=== PATIENT | male | born 1945 | race Caucasian/White ===

== ENCOUNTER 2019-10-18 16:45 | Inpatient (IN) | payer MEDICARE ==
[~2019-10-18] VITALS: Ht 190.5 cm; Wt 62.2 kg
[2019-10-18] MEDS ORDERED: CEFEPIME 1GM/NS 0.9% 50 ML 50 ML IV STA (17:40)
[2019-10-18] MEDS ORDERED: VANCOMYCIN 1GM/NS 250 ML 250 ML IV STA (17:40)
[2019-10-18] MEDS ORDERED: ONDANSETRON HCL INJ 2MG/ML 2ML 2 MG/ML VIAL IV PRN ×2 (17:45→23:30)
[2019-10-18] MEDS ORDERED: MORPHINE SULFATE 2 MG/ML SYR 1ML IV PRN (17:45)
[2019-10-18] MEDS ORDERED: CEFEPIME 1GM/NS 0.9% 50 ML 50 ML IV SCH ×2 (18:00→23:30)
--- NOTE | 2019-10-18 18:06 | Emergency Department Note ---
History of Present Illnes History of Present Illness Chief Complaint: Skin Rash or Abscess History of Present Illness This is a 74 year old male arrives to the ED by Dr. Stewart for admission for diabetic foot ulcer. 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 Any updates have been documented here. Past Medical History Recent Fever: No Clinical Suspicion of Infectio: Yes New/Unexplained Change in Ment: No Past Medical History: None Other Surgery: amputation of tip of 2nd toe of right foot Social History Smoking Cessation: Current every day smoker Counseling Performed: Yes Alcohol Use: Occasional Any Illegal Drug Use: No Other Any Pre-Existing Lines (PICC,: No Review of Systems Review of Systems Constitutional: Reports no symptoms EENTM: Reports no symptoms Cardiovascular: Reports no symptoms Respiratory: Reports no symptoms Gastrointestinal: Reports no symptoms Genitourinary: Reports no symptoms Musculoskeletal: Reports no symptoms Integumentary: Reports as per HPI Neurological: Reports no symptoms Psychological: Reports no symptoms Endocrine: Reports no symptoms Hematological/Lymphatic: Reports no symptoms Review of other systems: All other systems negative Physical Exam Related Data Allergies: Coded Allergies: No Known Allergies (Unverified , 10/18/19) Triage Vital Signs Vital Signs Date Time Temp Pulse Resp B/P (MAP) Pulse Ox O2 Delivery O2 Flow Rate FiO2 10/18/19 17:04 98.9 100 20 94/73 99 Room Air Vital signs reviewed: Yes Physical Exam CONSTITUTIONAL Constitutional: Present well-developed, Present well-nourished HENT HENT: Present normocephalic, Present atraumatic, Present oropharynx clear/moist, Present nose normal HENT L/R: Present left ext ear normal, Present right ext ear normal EYES Eyes: Reports PERRL, Reports conjunctivae normal NECK Neck: Present ROM normal PULMONARY Pulmonary: Present effort normal, Present breath sounds normal CARDIOVASCULAR Cardiovascular: Present regular rhythm, Present heart sounds normal, Present capillary refill normal, Present normal rate GASTROINTESTINAL Abdominal: Present soft, Present nontender, Present bowel sounds normal GENITOURINARY Genitourinary: Present exam deferred SKIN Skin: Present warm, Present other (multiple wound ulcers noted in the right lower extremity and right heel) MUSCULOSKELETAL Musculoskeletal: Present ROM normal NEUROLOGICAL Neurological: Present alert, Present oriented x 3, Present no gross motor or sensory deficits PSYCHOLOGICAL Psychological: Present mood/affect normal, Present judgement normal Results Laboratory Lab results reviewed: Yes Imaging Imaging results reviewed: Yes Assessment & Plan Medical Decision Making MDM [age] male arrives to the ED with right lower extremity diabetic foot ulcer, require hospitalization for IV antibiotics Assessment & Plan Final Impression: (1) Diabetic foot ulcer Depart Disposition: ADMITTED Last Vital Signs Date Time Temp Pulse Resp B/P (MAP) Pulse Ox O2 Delivery O2 Flow Rate FiO2 10/18/19 17:04 98.9 100 20 94/73 99 Room Air Medications in the ED Cefepime HCl 50 ml @ 100 mls/hr Q24H STAT IV ; Start 10/18/19 at 17:40; Stop 10/18/19 at 18:09; Status UNV Vancomycin HCl 250 ml @ 200 mls/hr NOW STAT IV ; Start 10/18/19 at 17:40; Stop 10/18/19 at 18:54 Cefepime HCl 50 ml @ 100 mls/hr Q24H IV ; Start 10/18/19 at 18:00; Stop 10/25/19 at 17:59 Ondansetron HCl 4 mg Q4H PRN IV NAUSEA AND VOMITING; Start 10/18/19 at 17:45; Stop 11/17/19 at 17:44 Morphine Sulfate 4 mg Q4H PRN IV SEVERE PAIN (7-10); Start 10/18/19 at 17:45; Stop 10/25/19 at 17:44 Vancomycin HCl 250 ml @ 200 mls/hr NOW IV ; Start 10/19/19 at 17:45; Stop 10/18/19 at 18:00; Status DC Vancomycin HCl 250 ml @ 200 mls/hr Q24H IV ; Start 10/19/19 at 18:00; Stop 10/26/19 at 17:59 CECI JOHNSON, Oct 18, 2019 18:06
[2019-10-18] MEDS ORDERED: SODIUM CHLORIDE 0.9% 1000ML 1,000 ML IV ONE (18:15)
--- NOTE | 2019-10-18 18:29 | Diagnostic Imaging Report ---
Two-view x-rays of the tibia and fibula. Three-view x-rays of the foot. HISTORY: Pain. Clinical suspicion Foster myelitis. COMPARISON: None available. FINDINGS: TIBIA/FIBULA: No acute fracture or dislocation. Atherosclerotic vascular calcifications. Otherwise no focal soft tissue abnormality. FOOT: No acute fracture or dislocation. There is slight subluxation and cortical irregularity at the second distal interphalangeal joint. Bipartite tibial sesamoid. Atherosclerotic vascular calcifications. IMPRESSION: 1. Slight subluxation and cortical irregularity at the second distal interphalangeal joint this constellation of findings may represent osteomyelitis in the proper clinical setting. However, an MRI with and without contrast may be considered for more definitive diagnosis. 2. No fracture or dislocation of the tibia/fibula. Signed by: Imani Webb MD on 10/18/2019 6:26 PM
[2019-10-18 18:37] LABS: BASOPHILS % 0.5 % (0.0-1.0); EOSINOPHILS # (AUTO) 0.1 (0.0-0.4); EOSINOPHILS % 0.9 % (0.0-6.0); HEMATOCRIT 37.4 % (38.2-49.6); HEMOGLOBIN 12.7 g/dL (14.0-18.0); LYMPHOCYTES # (AUTO) 1.1 (1.0-3.2); LYMPHOCYTES % 13.4 % (18.0-39.1); MEAN CORPUSCULAR HEMOGLOBIN 33.9 pg (28-32); MEAN CORPUSCULAR VOLUME 99.7 fL (81-99); MONOCYTES # (AUTO) 0.6 (0.2-0.8); MONOCYTES % 7.1 % (4.4-11.3); NEUTROPHILS # (AUTO) 6.4 (2.1-6.9); NEUTROPHILS % 77.7 % (38.7-80.0); PLATELET COUNT 296 x10e3/uL (140-360); RED BLOOD COUNT 3.75 x10e6/uL (4.3-5.7); RED CELL DISTRIBUTION WIDTH 12.8 % (11.7-14.4)
[2019-10-18 18:44] LABS: ALANINE AMINOTRANSFERASE 8 IU/L (0-55); ALBUMIN 3.3 g/dL (3.5-5.0); ALBUMIN/GLOBULIN RATIO 0.8 (0.8-2.0); ALKALINE PHOSPHATASE 91 IU/L (40-150); ANION GAP 14.6 mmol/L (8-16); BLOOD UREA NITROGEN 12 mg/dL (7-26); BUN/CREATININE RATIO 17 (6-25); CALCIUM 9.3 mg/dL (8.4-10.2); CARBON DIOXIDE 21 mmol/L (22-29); CHLORIDE 99 mmol/L (98-107); CREATINE KINASE 56 IU/L (30-200); CREATININE, SERUM 0.69 mg/dL (0.72-1.25); EST GLOMERULAR FILTRATION RATE > 60 ML/MIN (60-); GLUCOSE 94 mg/dL (74-118); POTASSIUM 4.6 mmol/L (3.5-5.1); SODIUM 130 mmol/L (136-145)
[2019-10-18 22:24] VITALS: BP 184/87
--- NOTE | 2019-10-18 22:24 | NUR ---
REPORT CALLED FROM ER FADY- 74 DORINDA OLD MALE ADMITTED FROM HOME FOR RIGHT DIABETIC FOOT ULCER.RESPIRATIONS ARE EVEN AND UNLABORED. PT HAS HX RADIATION AT [facility]. OLD TRACH SITE PRESENT. PT COVERS WHEN TALKS. TELE #[phone] ON.PT REPORTS WAS SEEING DR AN FOR RT FOOT. DR AN HAD ORDERED AMOXICILLIN 875 MG PO BID. PT VERBALIZED HE IS NOT DIABETIC AND DOES NOT TAKE ANY OTHER MEDS. MRI XRAY OF RT LEG PENDING. SL 22 G RT FA. LT AC 20 G PATENT WITH VANCOMYCIN IV ABT INFUSING VIA IV PUMP #1 DOSE. PT IS ALERT AND ORIENTED BUT POOR HISTORIAN- MEDICINES AND HISTORY. WOUND CONSULT ORDERED. SEE MEASUREMENTS FOR WOUNDS RT LEG.ORIENTED TO ROOM, PMC AND MS3. CALL LIGHT WITHIN RECH. BED LOCKED AND IN LOW POSITION. TO BE EMERGENCY CONTACT- [facility] [phone] , CELL [phone], [phone].BED ALARM ON. PT VOIDING PER URINAL.
[2019-10-18 23:00] VITALS: BP 184/87
[2019-10-18] MEDS ORDERED: AMOXICILLIN250 MG PO (23:21)
[2019-10-18] MEDS ORDERED: HYDROCODONE/APAP 5MG-325MG TAB PO PRN (23:30)
[2019-10-18] MEDS ORDERED: HYDRALAZINE HCL 20 MG/ML VIAL IV PRN (23:30)
[2019-10-18] MEDS ORDERED: DOCUSATE SODIUM 100 MG CAP PO PRN (23:30)
[2019-10-18] MEDS ORDERED: MELATONIN 5 MG TABLET PO PRN (23:30)
[2019-10-19] VITALS: BP 139/76
[2019-10-19 01:46] LABS: CREATINE KINASE MB 1.4 ng/mL (0-5.0)
[2019-10-19 04:00] VITALS: BP 127/74
--- NOTE | 2019-10-19 04:00 | NUR ---
CEFEPIME GIVEN AT 4 AM ORDERED BY PHYSICIAN. ORDER WAS CHANGED FROM DAILY TO Q 8 HRS.
[2019-10-19] MEDS ORDERED: SODIUM CHLORIDE 0.9% 250ML 250 ML ONE (04:25)
[2019-10-19 06:06] LABS: BASOPHILS % 0.5 % (0.0-1.0); EOSINOPHILS # (AUTO) 0.1 (0.0-0.4); EOSINOPHILS % 1.3 % (0.0-6.0); HEMATOCRIT 35.3 % (38.2-49.6); HEMOGLOBIN 11.8 g/dL (14.0-18.0); LYMPHOCYTES # (AUTO) 1.4 (1.0-3.2); MEAN CORPUSCULAR HEMOGLOBIN 33.2 pg (28-32); MEAN CORPUSCULAR HGB CONC 33.4 g/dL (31-35); MEAN CORPUSCULAR VOLUME 99.4 fL (81-99); MONOCYTES # (AUTO) 0.6 (0.2-0.8); NEUTROPHILS # (AUTO) 3.4 (2.1-6.9); NEUTROPHILS % 61.8 % (38.7-80.0); PLATELET COUNT 277 x10e3/uL (140-360); RED BLOOD COUNT 3.55 x10e6/uL (4.3-5.7); RED CELL DISTRIBUTION WIDTH 12.6 % (11.7-14.4)
[2019-10-19 06:32] LABS: ALANINE AMINOTRANSFERASE 8 IU/L (0-55); ALBUMIN 3.1 g/dL (3.5-5.0); ALBUMIN/GLOBULIN RATIO 0.8 (0.8-2.0); ALKALINE PHOSPHATASE 84 IU/L (40-150); ANION GAP 13.5 mmol/L (8-16); BLOOD UREA NITROGEN 11 mg/dL (7-26); BUN/CREATININE RATIO 16 (6-25); CARBON DIOXIDE 24 mmol/L (22-29); CHLORIDE 101 mmol/L (98-107); CREATININE, SERUM 0.68 mg/dL (0.72-1.25); EST GLOMERULAR FILTRATION RATE > 60 ML/MIN (60-); GLUCOSE 88 mg/dL (74-118); POTASSIUM 4.5 mmol/L (3.5-5.1); SODIUM 134 mmol/L (136-145)
[2019-10-19 07:05] LABS: CHOL/HDL RATIO 5.1 (3.9-4.7)
[2019-10-19 07:24] LABS: THYROID STIMULATING HORMONE 1.755 uIU/mL (0.350-4.940)
[2019-10-19 08:17] VITALS: BP 146/75
[2019-10-19 10:16] LABS: CREATINE KINASE MB 1.2 ng/mL (0-5.0)
[2019-10-19 11:51] VITALS: BP 148/74
[2019-10-19] MEDS ORDERED: CEFEPIME 1GM/NS 0.9% 50 ML 50 ML IV SCH (12:00)
--- NOTE | 2019-10-19 13:08 | NUR ---
WOUND CARE INITIAL CONSULT FOR 74 YO MALE ADMITTED TO [facility] WITH A HX OF DIABETIC FOOT ULCERS. BRENDAN 17 ON MODERATE PUP STATUS AND INTERVENTIONS SURFACE: REGULAR VISCO MATTRESS. LABS: WBC- 5.55 HGB- 11.8 ALBUMIN: 3.1 GLUCOSE-102 MICRO: BLOOD CULTURE PENDING IMAGING: MRI RIGHT FOOT PENDING. RIGHT FOOT X-RAY IMPRESSION SLIGHT SUBLUXATION AND CORTICAL IRREGULARITY AT THE SECOND DISTAL INTERPHALANGEAL JOINT THIS CONSTELLATION OF FINDING MAY REPRESENT OSTEOMYELITIS IN THE PROPER CLINICAL SETTING. MRI CONSIDERED. SKIN ASSESSMENT COMPLETE, PATIENT PRESENTS WITH COLD TO TOUCH RIGH LEG/FOOT; WARM TO TOUCH LEFT FOOT/LEG. NON PALPABLE PULSES PRESENT TO RIGHT FOOT, WEAK PT/DP TO LEFT FOOT. DIABETIC ULCER GRADE 4 TO RIGHT HEEL; 100% ESCHAR; NO DRAINAGE AND DRY. MEASURING 3 CM X 3.8 CM. DIABETIC ULCER GRADE 4 TO FIVE DIGITS ON RIGHT FOOT 100% ESCHAR EXTENDING FROM TIPS AND CIRCUMFERENTIAL TO DIGITS; BLUISH DISCOLORATION PRESENT TO PERIOWOUND SOURROUNDING ESCHAR. NO DRAINAGE. DRY UNSTAGEABLE ULCER TO RIGHT LATERAL LOWER LEG MEASURING 1 CM X 1.1 CM; 100% ESCHAR; DRY; NO DRAINAGE PRESENT. UNSTAGEABLE ULCER TO RIGHT MEDIAL LOWER LEG MEASURING 6 CM X 4.5CM; 100% ESCHAR; DRY; NO DRAINAGE PRESENT. DR. MIGUEL PRESENT IN ROOM, ASSESSED PATIENT RECOMMENDED A CONSULT WITH DR. MEYER FOR CARDIOLOGYCLAIRE FOR RIGHT TOE AND HEEL ULCERS AND GOPO TO TREAT RIGHT LATERAL AND MEDIAL LOWER LEG ULCERS. FLOOR NURSE TO PLACE CONSULTS. RECOMMENDATIONS: NURSING TO CLEAN ULCERS TO RIGHT TOES AND HEEL WITH NORMAL SALINE, PAT DRY WITH 4X4 GAUZE, PAINT WITH BETADINE, COVER WITH 4X4 GAUZE AND LIGHTLY WRAP WITH KERLIX AND SECURE WITH TAPE DAILY. NURSING TO CLEAN RIGHT LATERAL AND MEDIAL LOWER LEG ULCERS WITH NORMAL SALINE, PAT DRY WITH 4X4 GAUZE, PAINT WITH BETADINE, APPLY MESALT AND COVER WITH 4X4 GAUZE, LIGHTLY WRAP WITH KERLIX AND SECURE WITH TAPE DAILY. NURSING TO CONTINUE WITH DR. MIGUEL RECOMMENDATIONS TO CONSULT WITH DR. MEYER FOR CARDIOLOGYCLAIRE FOR RIGHT TOE AND HEEL ULCERS AND GOPO TO TREAT RIGHT LATERAL AND MEDIAL LOWER LEG ULCERS. NURSING TO CONTINUE TO MONITOR PATIENT AND KEEP SKIN CLEAN AND FREE FROM STOOL OR IRRITATING MOISTURE AND CONTINUE TO FOLLOW CONSEVATIVE PUP INTERVENTIONS DAILY. NURSING TO CONTINUE REPOSITION PT SIDE TO SIDE EVERY TWO HOURS AND TO ENCOURAGE PT TO SELF REPOSITION IN BED NEEDED. NURSING TO APPLY ALTERNATING PRESSURE MATTRESS. NURSING TO CONTINUE TO OFFLOAD FEET AND HEELS AT ALL TIMES WITH PILLOW SUSPENSION WHEN IN BED. NURSING TO APPLY BILATERAL HEEL PROTECTORS DAILY. NURSING TO ASSIST PT OUT OF BED FOR MEALS AND NEEDED. NURSING TO CONTINUE TO ASSIST WITH PT NUTRITIONAL SUPPLEMENTS TO ENSURE PROPER REQUIREMENTS FOR HEALING. NURSING TO RE- CONSULT WOUND CARE NEEDED. Addendum: 10/19/19 at 1819 by Temitope Johnson RN Amended: Links added.
--- NOTE | 2019-10-19 14:13 | NUR ---
once patient retuned to floor from MRI, patient stating he wants to leave. explained to patient that he should stay for further evaluation by consults. patient still demanding to leave. I spoke with on phone and educated her as well. 2 IVs removed, telemetry removed. patient wheeled off unit to 's personal vehicle.
--- NOTE | 2019-10-19 15:39 | History and Physical ---
CHIEF COMPLAINT: Right lower extremity gangrene. HISTORY OF PRESENT ILLNESS: A 74-year-old male, multiple comorbidities. Of note, he has chronic smoking history, has severe PAD. He comes in with worsening right foot gangrene ongoing for the last several months. The patient is a very poor historian. Information being obtained from the nursing staff and ED note as well as the . He reports having this for significant period of time. He was going to a local wound care clinic at [address] and apparently he stopped going there. He has now come in with worsening pain. He has gangrene of the toes. He also has a necrotic area in the lateral aspect of the right conner. The patient reports very minimal pain. The patient is seen and evaluated at bedside on the medical floor. He is currently doing well with no other issues at this time. ID, Podiatry, Cardiology, and Wound Care have been consulted. REVIEW OF SYSTEMS: Pertinent positive: He has right foot PAD gangrene of the toes. The rest of 14-point review of systems are reviewed with the patient and are negative. ALLERGIES: NO KNOWN DRUG ALLERGIES. HOME MEDICATIONS: He was just taking amoxicillin. PAST MEDICAL HISTORY: He has severe PAD. He is a chronic smoker. He reports no other medical issues. PAST SURGICAL HISTORY: He had a tracheostomy in the past due to being intubated at some point, but he cannot tell me when and why. PAST FAMILY HISTORY: Hypertension and diabetes. SOCIAL HISTORY: No drugs. No alcohol. He is a smoker and has been smoking for a significant number of years. PHYSICAL EXAMINATION: VITAL SIGNS: Temperature is 98.1, pulse 66, respiratory rate is 18, blood pressure 140/74, and pulse ox is 98% on room air. GENERAL: Not in acute distress. Alert and oriented x3. Cooperative on examination. HEENT: Head; normocephalic, atraumatic. Eyes; pupils are equal, round, and reactive to light bilaterally. Extraocular movements intact bilaterally. Throat; no evidence of erythema or exudates in the posterior pharynx. Has poor dentition. NECK: Supple. Good range of motion. PULMONARY: Clear to auscultation bilaterally. No wheezing, no rales, no rhonchi, no crackles appreciated. CARDIOVASCULAR: Positive S1 and S2. No murmurs, rubs, or gallops appreciated. ABDOMEN: Soft, nondistended, and nontender to palpation. Bowel sounds present. MUSCULOSKELETAL: Strength is 5/5 throughout. No evidence of any muscle deficits on examination. No weakness appreciated. NEUROLOGIC: Cranial nerves 2 through 12 grossly intact. No evidence of any neurological deficits on exam. SKIN: Intact. Warm to touch. Good cap refill. PSYCHIATRIC: Normal affect and mood. EXTREMITIES: No edema. Good range of motion throughout. His right lower extremity, he has a lateral aspect significant venous ulceration, necrotic in nature, approximately 2.5 inches to 3 inches in size and diameter. He also has necrotic toes to the right foot. No discharge noted. It is erythematic. On the right foot, he also has an area of necrosis on the heel of the right foot as well. LABORATORY FINDINGS: Show white count 5.5, hemoglobin 11.8, hematocrit is 35, and platelets of 277. Chemistries; sodium 134, potassium 4.5, chloride 101, bicarb 24, anion gap of 13, BUN is 11, creatinine is 0.68, and glucose 88. Lactic acid is. LFTs within normal range. Troponins are negative. Albumin is 3.1. LDL was 110. Serology; coronavirus is pending. MICROBIOLOGY: Blood cultures are pending. IMAGING STUDIES: Foot x-ray, slight subluxation of the cortical irregularity of the 2nd distal interphalangeal joint and has constellation of findings may represent osteomyelitis in a clinical setting. MRI of the foot reveals no fracture or dislocation in the tibiofibula. Lower extremity x-ray similar findings. IMPRESSION: 1. Gangrene of the right foot toes. 2. Necrotic venous ulceration on the lateral aspect of the right lower extremity. 3. Severe peripheral arterial disease. 4. Chronic smoker. 5. Medical noncompliance. PLAN: At this time, blood cultures have been collected and the patient is on broad-spectrum IV antibiotic therapy. Consultants needed on this case will be ID, Podiatry, Cardiology for an angiogram, and Wound Care. I did consult with these physicians to come and evaluate the patient. I will restart all his home medications. Put him on Lovenox for DVT prophylaxis. I discussed the plan of care with the patient at bedside with the nurse and the wound care nurse present and he verbalized understanding. An MRI of the right foot has been ordered as well, but it is likely to be osteomyelitis based on the actual appearance of his right foot. Once again, he verbalized understanding and agrees to plan of care. The patient seems to likely need some sort of amputation and it may be a BKA based on the findings I am seeing on physical exam. We will have the consultants to make further recommendations. MD ENZO White/ANIKET /[id number]
[2019-10-19] MEDS ORDERED: VANCOMYCIN 1GM/NS 250 ML 250 ML IV SCH ×2 (17:45→18:00)
--- OUTSIDE RECORDS SUMMARY | 2019-10-19 20:59 | XMS REPORT | Continuity of Care Document ---
Author Author [facility] t Organization [facility] Address [address] [place] [address] Phone Unavailable Care Team Providers Care Enterostomal Therapy Nurse Name Role Phone DAHU, S JIRIES Attphys Unavailable DAHU, S JIRIES Admphys Unavailable Payers Payer Name Policy Type Policy Number Effective Date Expiration Date S ource Problems This patient has no known problems. Allergies, Adverse Reactions, Alerts Allergy Name Allergy Type Status Severity Reaction(s) Onset Date Inacti ve Date Treating Clinician Comments Source No Known Drug Intolerances DA Active U 2019-08-29 00:00:0 0 [facility] Not Converted 80. See Text. DA Active U 2019-08-29 00:00 :00 [facility] No Known Drug Intolerances DA Active U 2008-09-16 00:00:0 0 [facility] Not Converted 80. See Text. DA Active U 2008-09-16 00:00 :00 [facility] NO KNOWN CONTRAST MEDIA ALLERG DA Active U 2005-12-20 00: 00:00 [facility] NO KNOWN OTHER ALLERGIES DA Active U 2005-12-20 00:00:00 [facility] No Known Food Allergies DA Active U 2005-12-20 00:00:00 [facility] PRILOSEC DA Active U 2005-12-20 00:00:00 [facility] Medications This patient has no known medications. Procedures This patient has no known procedures. Results Test Description Test Time Test Comments Results Result Comments Source FOOT RIGHT COMPLETE 2019-10-18 18:19:00 [place] [address] Patient Name: POLLY KHOURY MR #: [id number] : 1945 Age/Sex: 74/M Req #: [id number] Adm Physician: JERMAN MIGUEL MD Ordered by: CECI JOHNSON DO Report #: [id number] Location: [facility] Room/Bed: [place] [address] Procedure: [id number] DX/FOOT RIGHT COMPLETE Exam Date: 10/18/19 Exam Time: 1800 REPORT STATUS: Signed Two-view x-rays of the tibia and fibula. Three-view x-rays of the foot. HISTORY: Pain. Clinical suspicion Foster myelitis. COMPARISON: None available. FINDINGS: TIBIA/FIBULA: No acute fracture or dislocation. Atherosclerotic vascular calc ifications. Otherwise no focal soft tissue abnormality. FOOT: No acute fracture or dislocation. There is slight subluxation and cortical irregularity at the second distal interphalangeal joint. Bipartite tibial sesamoid. Atherosclerotic vascular calcifications. IMPRESSION: 1. Slight subluxation and cortical irregularity at the second distal interphalangeal joint this constellation of findings may represent osteomyelitis in the proper clinical setting. However, an MRI with and without contrast may be considered for more definitive diagnosis. 2. No fracture or dislocation of the tibia/fibula. Signed by: Taylor Mendiola MD on 10/18/2019 6:26 PM Dictated By: TAYLOR MENDIOLA MD 25 Transcribed By: GERRY on 10/18/191825 COPY TO: CECI JOHNSON DO LOWER LEG RIGHT 2019-10-18 18:19:00 [facility] [place] [address] Patient Name: POLLY KHOURY MR #: [id number] : 1945 Age/Sex: 74/M Req #: [id number] Adm Physician: JERMAN MIGUEL MD Ordered by: CECI JOHNSON DO Report #: [id number] Location: [facility] Room/Bed: [place] [address] Procedure: [id number] DX/LOWER LEG RIGHT Exam Date: 10/18/19 Exam Time: 1800 REPORT STATUS: Signed Two-view x-rays of the tibia and fibula. Three-view x-rays of the foot. HISTORY: Pain. Clinical suspicion Foster myelitis. COMPARISON: None available. FINDINGS: TIBIA/FIBULA: No acute fracture or dislocation. Atherosclerotic vascular calcifications. Otherwise no focal soft tissue abnormality. FOOT: No acute fracture or dislocation. There is slight subluxation and cortical irregularity at the second distal interphalangeal joint. Bipartite tibial sesamoid. Atherosclerotic vascular calcifications. IMPRESSION: 1. Slight subluxation and cortical irregularity at the second distal interphalangeal joint this constellation of findings may represent osteomyelitis in the proper clinical setting. However, an MRI with and without contrast may be considered for more definitive diagnosis. 2. No fracture or dislocation of the tibia/fibula. Signed by: Taylor Mendiola MD on 10/18/2019 6:26 PM Dictated By: TAYLOR MENDIOLA MD 25 Transcribed By: GERRY on 10/18/191825 COPY TO: CECI JOHNSON DO BONE,BIOPSY 2019-08-21 16:44:00 RUN DATE: 08/21/19 [place] [facility] PAGE 1 RUN TIME: 1644 Specimen Inquiry RUN USER: INTERFACE PATIENT: POLLY KHOURY [facility] U #: [id number] AGE/SX: 73/M ROOM: RE08/17/19REG DR: Mani Thomas : 43 BED: DIS: STATUS: DIS RCR TLOC: SPEC #: [id number] RECD: 08/20/19 STATUS: SOUJoseline REQ #: [id number] KATHI: 08/17/19- [facility] DR: Larissa Thomas ENTERED: 08/20/19 SP TYPE: BX BONE OTHR DR: Mateo Simpson DO ORDERED: GROSS COPIES TO: Larissa Thomas [address] [place], [place] [id number] Mateo Simpson DO [address] [place] [address] PROCEDURES: GROSS (08/21/19-1431) TISSUES: PHALANX OF FOOT, NOS - 2 SECOND TOE RIGHT FOOT CLINICAL HISTORY COLLECTION DATE: 08/17/19 FINAL DIAGNOSIS Right lower extremity, second toe middle phalanx, bone biopsy: TRABECULAR BONE WITH INCREASED ACUTE INFLAMMATION, NECROSIS AND OSTEONECROSIS, ACUTE OSTEOMYELITIS NEGATIVE FOR MALIGNANCY RRB/joann D [id number], 50018 MACROSCOPIC The specimen is received in formalin labeled with the patient's name, "bone bx" and consists of a biopsy of light posey tissue measuring 0.3 x 0.2 x 0.1 cm, submitted for histologic evaluation. GROSS PERFORMED AT [facility] [address] [place] [address] CONTINUED ON NEXT PAGE RUN DATE: 08/21/19 [facility] PAGE 2 RUN TIME: 1644 Specimen Inquiry RUN USER: INTERFACE SPEC #: [id number] PATIENT: POLLY KHOURY MITALI #[id number] (Continued) MACROSCOPIC (Continued) (P)[phone] MICROSCOPIC Multiple levels of the tissue show trabecular bone with areas of osteonecrosis. An inflammatory infiltrate is present within this marrow space consisting almost entirely of neutrophils. Necrotic debris is also present. The histologic features are those of an acute osteomyelitis. A small fragment of benign colonic mucosa is present in the section which is a portion of extraneous material not related to the bone biopsy. Correlation with culture studies in recommended. All of the stains, including any controls performed, stain appropriately. MICROSCOPIC PERFORMED AT [facility] [address] [place] [address] (P)[phone] PERFORMING SITE Diagnosis performed at: [facility] [address] [facility], [place] [address] Signed SIGNATURE ON FILE Alistair Kendall MD 08/21/19 1644 END OF REPORT
--- NOTE | 2019-10-20 17:39 | Discharge Summary ---
FINAL DISCHARGE DIAGNOSES: 1. The patient left against medical advice. 2. Gangrene of the right foot toes. 3. Chronic necrotic venous ulceration on the lateral aspect of the right lower extremity. 4. Severe peripheral artery disease. 5. Chronic smoker. CONSULTANTS: We had Podiatry, Cardiology, Infectious Disease, and Wound Care. PHYSICAL EXAMINATION: VITAL SIGNS: Temperature is 98.1, pulse 66, respiratory rate is 18, blood pressure is 140/74, pulse ox 98% on room air. LABORATORY DATA: Labs show white count 5.5, hemoglobin 11.8, hematocrit 35, platelets of 277. Chemistry, sodium 134, potassium 4.5, chloride 101, bicarb 24, anion gap of 13, BUN is 11, creatinine is 0.68, glucose is 88. Lactic acid is 1. LFTs within normal range. Troponins were negative. Albumin was 3.1. LDL was 110. Coronavirus not detected. MICROBIOLOGY: Blood cultures no growth. IMAGING STUDIES: Foot x-ray shows a slight subluxation and cortical irregularity at the second distal interphalangeal joint. This constellation of findings may represent osteomyelitis in the proper clinical setting. MRI of the foot was ordered. No fracture, dislocation of the tibia or fibula. Lower extremity x-ray shows similar findings. HOSPITAL COURSE: A 74-year-old male sent in by his PCP due to worsening right lower extremity cellulitis, dry gangrene as well as severe PAD. The patient was admitted and started on broad-spectrum IV antibiotic therapy. Several consultants were consulted including ID, Podiatry, Wound Care and Cardiology for an angiogram. The patient initially wanted to proceed with all procedures and wanted to see the consultants, but somehow wanted to leave against medical advice. The patient left AMA on 10/19/2019, and he signed appropriate documentation and left. The patient did not explain why he left. He stated that he wanted to leave and he did not want his foot evaluated despite coming to the hospital for further evaluation. The nursing staff as well as I tried to convince him to stay longer in order for him to get for further treatment and care, but instead he refused. In fact, he also refused his MRI of the foot. The patient signed against medical advice and left AMA. MEDICATIONS: Left against medical advice. DISPOSITION: Left against medical advice. MD ENZO White/ANIKET /[id number]
== END 2019-10-19 14:04 | disposition left against medical advice (07) | DRG 300 ==
LOC: ER 17:29 → ERHOLD 17:48 → MED/SURG3 22:32
PROVIDERS: ADMIT Internal Medicine; ATTEND Internal Medicine
DX: E11.52 Type 2 diabetes mellitus with diabetic peripheral angiopathy with gangrene (principal); I96 Gangrene, not elsewhere classified; I70.261 Atherosclerosis of native arteries of extremities with gangrene, right leg; E11.621 Type 2 diabetes mellitus with foot ulcer; M79.671 Pain in right foot; Z79.4 Long term (current) use of insulin; F17.200 Nicotine dependence, unspecified, uncomplicated; Z91.19 Patient's noncompliance with other medical treatment and regimen
CPT/HCPCS: 36415; 80053; 80061; 82550; 82553; 82948; 83036; 83605; 84443; 84484; 85025; 87040; 99284; J0692; J3370; J7050; U0002